=== PATIENT | male | born 2000 | race Caucasian/White ===

== ENCOUNTER 2018-08-02 16:30 | Emergency (ER) | payer OTHER ==
[2018-08-02 17:08] VITALS: BP 129/65
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
== END 2018-08-02 18:05 | disposition home or self-care (01) ==
LOC: UCEAST 16:30
DX: S02.31XA Fracture of orbital floor, right side, initial encounter for closed fracture (principal); W50.0XXA Accidental hit or strike by another person, initial encounter; Y92.9 Unspecified place or not applicable
CPT/HCPCS: 70480; 99201; G0463

== ENCOUNTER 2018-08-05 13:42 | Emergency (ER) | payer OTHER ==
[2018-08-05 13:47] VITALS: BP 122/78
[2018-08-05] MEDS ORDERED: Tetracaine 0.5% OPTH.SOL 15ML* BTL RIGHT EYE ONE (14:09)
[2018-08-05] MEDS ORDERED: Fluorescein Sodium TOPICAL* 1 MG TEST STRIP OPHTHALMIC ONE (14:10)
[2018-08-05] MEDS ORDERED: NS 0.9% 1000 ML** 1,000 ML IV ONE (14:10)
[2018-08-05] MEDS ORDERED: Tetracaine 0.5% OPTH.SOL 4 ML* 1 DROP BTL ONE (14:13)
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
== END 2018-08-05 14:50 | disposition home or self-care (01) ==
LOC: UCEAST 13:42
DX: T15.01XA Foreign body in cornea, right eye, initial encounter (principal); S00.251A Superficial foreign body of right eyelid and periocular area, initial encounter; X58.XXXA Exposure to other specified factors, initial encounter; Y92.9 Unspecified place or not applicable
CPT/HCPCS: 83986; 99213; A9270-GY; G0463

== ENCOUNTER 2018-12-07 23:15 | Emergency (ER) | payer OTHER ==
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
[2018-12-07] MEDS ORDERED: Morphine 4 MG/ML VIAL (1 ml) 4 MG/ML VIAL IV ONE (23:46)
[2018-12-07] MEDS ORDERED: Tetan/Diph/Pertus SYR(Tdap)* 0.5 ML SYR(BOOSTRIX) use SYR IM ONE (23:46)
[2018-12-07] MEDS ORDERED: Ketorolac INJ* 30 MG/ML 1 ML VIAL IV PUSH ONE (23:47)
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
[2018-12-08] MEDS ORDERED: Morphine 4 MG/ML VIAL (1 ml) 4 MG/ML VIAL IV ONE (00:36)
[2018-12-08] MEDS ORDERED: Silver Sulfadiazine 1%* 20 GM TOPICAL ONE (00:37)
[2018-12-08] MEDS ORDERED: HYDROcodone/ACETAMIN 5-325 MG* 1 TAB PO ONE (01:33)
[2018-12-08 01:47] VITALS: BP 122/62
== END 2018-12-08 01:45 | disposition home or self-care (01) ==
LOC: ED 23:15
DX: T21.05XA Burn of unspecified degree of buttock, initial encounter (principal); T21.04XA Burn of unspecified degree of lower back, initial encounter; T21.02XA Burn of unspecified degree of abdominal wall, initial encounter; T23.001A Burn of unspecified degree of right hand, unspecified site, initial encounter; T31.0 Burns involving less than 10% of body surface; Z23 Encounter for immunization; X12.XXXA Contact with other hot fluids, initial encounter
CPT/HCPCS: 90471; 90715; 96374; 96375; 99282; A9270-GY; J1885; J2270

== ENCOUNTER 2018-12-08 10:58 | Emergency (ER) | payer OTHER ==
[2018-12-08 11:23] VITALS: BP 164/63
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
== END 2018-12-08 12:09 | disposition home health service (06) ==
LOC: UCEAST 10:58
DX: Z48.00 Encounter for change or removal of nonsurgical wound dressing (principal); T23.261A Burn of second degree of back of right hand, initial encounter; T23.221A Burn of second degree of single right finger (nail) except thumb, initial encounter; T21.25XA Burn of second degree of buttock, initial encounter; T21.24XA Burn of second degree of lower back, initial encounter; T31.11 Burns involving 10-19% of body surface with 10-19% third degree burns; X19.XXXA Contact with other heat and hot substances, initial encounter; Y92.9 Unspecified place or not applicable; X12.XXXA Contact with other hot fluids, initial encounter; W01.0XXA Fall on same level from slipping, tripping and stumbling without subsequent striking against object, initial encounter; Y93.G3 Activity, cooking and baking
CPT/HCPCS: 16025; 99201; G0463